=== PATIENT | male | born 1990 | race Caucasian/White ===

== ENCOUNTER 2019-06-12 22:47 | Emergency (ER) | payer MEDICARE, MEDICAID ==
--- NOTE | 2019-06-12 23:15 | EDM.PDOC ---
ED HPI GENERAL MEDICAL PROBLEM - General Chief Complaint: General Stated Complaint: facial bleeding Time Seen by Provider: 06/12/19 23:00 Source of Information: Reports: Patient, Family History Limitations: Reports: No Limitations - History of Present Illness INITIAL COMMENTS - FREE TEXT/NARRATIVE: he is seen in the emergency department for evaluation of bleeding from his nose. He was in the shower tonight and noted bleeding from the edge of his nose on the left side. The bleeding is not coming from inside the nose. Apparently was bleeding for over or an hour at home, so he came to the emergency department. It has however stopped bleeding. He denies any injury that he is aware of. No history of bleeding problems. - Related Data Allergies Allergy/AdvReac Type Severity Reaction Status Date / Time No Known Allergies Allergy Verified 06/12/19 22:49 Home Meds: Home Meds Benzoyl Peroxide [Panoxyl] 1 applic TP BEDTIME 06/12/19 [History] Cholecalciferol (Vitamin D3) [Vitamin D3] 2,000 unit PO DAILY 06/12/19 [History] Clindamycin Phos/Benzoyl Perox [Clindamycin-Benzoyl Perox 1-5%] 1 applic TP BID 06/12/19 [History] Clotrimazole [Clotrimazole 1%] 1 applic TP BID 06/12/19 [History] Sulfamethoxazole/Trimethoprim [Septra DS] 1 tab PO BID 06/12/19 [History] Tazarotene [Tazorac] 1 applic TP BEDTIME 06/12/19 [History] amLODIPine Besylate [Amlodipine Besylate] 1 tab PO DAILY 06/12/19 [History] lamoTRIgine 1 tab PO BID 06/12/19 [History] ED ROS GENERAL - Review of Systems Review Of Systems: See Below Constitutional: Reports: No Symptoms HEENT: Reports: Other (Bleeding from face) Respiratory: Reports: No Symptoms Cardiovascular: Reports: No Symptoms Endocrine: Reports: No Symptoms GI/Abdominal: Reports: No Symptoms : Reports: No Symptoms Musculoskeletal: Reports: No Symptoms Skin: Reports: No Symptoms Neurological: Reports: No Symptoms Psychiatric: Reports: No Symptoms Hematologic/Lymphatic: Reports: No Symptoms Immunologic: Reports: No Symptoms ED EXAM, GENERAL - Physical Exam Exam: See Below Exam Limited By: No Limitations General Appearance: Alert, WD/WN, No Apparent Distress Nose: Other (there is a /2 cm very superficial laceration on the left side of the nose superiorly. Palpation of the area in movement of the lacerated area did not cause the bleeding to restart. The nose is otherwise unremarkable.) Course - Vital Signs Last Recorded V/S: Last Vital Signs Temp 37.3 C 06/12/19 22:59 Pulse 98 06/12/19 22:59 Resp 18 06/12/19 22:59 BP 150/75 H 06/12/19 22:59 Pulse Ox 98 06/12/19 22:59 Departure - Departure Time of Disposition: 23:15 Disposition: Home, Self-Care 01 Clinical Impression: Laceration of face - Discharge Information Referrals: Sofia Celestin PA-C [Primary Care Provider] - Forms: ED Department Discharge Care Plan Goals: keep a Band-Aid over the area to avoid picking at it. Apply pressure with a gauze or Kleenex if the bleeding restarts. Followup as needed. - Assessment/Plan Assessment:: laceration face Plan: Keep a Band-Aid over the area to avoid picking at it. Apply pressure with a gauze or Kleenex if the bleeding restarts. Followup as needed.
== END 2019-06-12 23:20 | disposition home or self-care (01) ==
LOC: LL.ED 22:47
DX: S01.21XA Laceration without foreign body of nose, initial encounter (principal); X58.XXXA Exposure to other specified factors, initial encounter
CPT/HCPCS: 99282

== ENCOUNTER 2020-08-20 15:13 | Emergency (ER) | payer MEDICARE, MEDICAID ==
[2020-08-20] MEDS ORDERED: Pantoprazole 40 MG Vial IVPUSH ONE (15:34)
[2020-08-20] MEDS ORDERED: Famotidine 20 MG/2 ML SDV IVPUSH ONE (15:34)
[2020-08-20] MEDS ORDERED: Lactated Ringers 1,000 ML IV ONE (15:34)
--- NOTE | 2020-08-20 15:34 | EDM.PDOC ---
ED HPI GENERAL MEDICAL PROBLEM - General Chief Complaint: Genitourinary Problem Stated Complaint: Flank Pain Time Seen by Provider: 08/20/20 15:25 Source of Information: Reports: Patient, Old Records ([facility] chart/EMR), Other ([facility] EMR) History Limitations: Reports: Altered Mental Status - History of Present Illness INITIAL COMMENTS - FREE TEXT/NARRATIVE: The patient was brought to the emergency room via private automobile by his caregiver, Juli, for evaluation of nonspecific right CVA tenderness, which apparently started sometime yesterday evening. He did have problems sleeping during the night secondary to this discomfort with progressive symptoms today with no known previous fever. He was initially evaluated by Yaneli Nieves PA-C at the [facility] in [place], who did send the patient to emergency room for further evaluation. The patient is a somewhat poor historian secondary to his baseline stable by history mental deficits. Patient did receive Zofran by his regular provider for some nonspecific nausea and one episode of emesis in the clinic as above with no other treatment to this point, blood work, etc. He denies any gross hematuria or other UTI symptoms, however we could not determine whether he had colic or not. No recent history of abdominal pain, heartburn, nausea, diarrhea, melena, gross hematochezia, or any food intolerance, including fatty foods, etc. with normal bowel movement earlier today. The patient denies any chest pain/pressure, heart flutter, dizziness, orthostasis, orthopnea, diaphoresis, paresthesias, recent decreased exercise tolerance, or any other anginal-type symptoms, although some possible right pleuritic type symptoms based on difficult history. The patient also denies any recent fever, cough, wheezing, dyspnea, etc.. No known exposure to infection with patient already receiving his influenza booster. The patient did initially have problems while lying down with possible increase symptoms with oral intake but no anorexia, etc.? He is unable to relate his discomfort. Onset: Unknown/Unsure Onset Date: 08/19/20 Duration: Constant, Getting Worse Location: Reports: Chest, Abdomen (Right CVA). Denies: Radiates to Quality: Reports: Sharp Severity: Moderate Improves with: Reports: Rest Worsens with: Reports: Breathing, Movement Context: Reports: Other (As above). Denies: Sick Contact, Trauma Associated Symptoms: Reports: Chest Pain, Nausea/Vomiting (As above). Denies: Confusion, Cough, Diaphoresis, Fever/Chills Treatments STUDENT ASSISTANCE COUNSELOR: Reports: Other Medication(s) (As above) Right Back Pain Score (Numeric/FACES): 6 - Related Data Allergies Allergy/AdvReac Type Severity Reaction Status Date / Time No Known Allergies Allergy Verified 08/20/20 16:19 Home Meds: Home Meds Benzoyl Peroxide [Panoxyl] 1 applic TP BEDTIME 06/12/19 [History] Cholecalciferol (Vitamin D3) [Vitamin D3] 2,000 unit PO DAILY 06/12/19 [History] Clindamycin Phos/Benzoyl Perox [Clindamycin-Benzoyl Perox 1-5%] 1 applic TP BID 06/12/19 [History] amLODIPine Besylate [Amlodipine Besylate] 1 tab PO DAILY 06/12/19 [History] lamoTRIgine 0.5 tab PO BID 06/12/19 [History] Amoxicillin/Potassium Clav [Augmentin 875-125 Tablet] 1 each PO BIDMEALS #20 tablet 08/20/20 [Rx] Dextromethorphan/guaiFENesin [Mucinex DM ER 600-30 MG] 1 tab PO BID #20 tab.er 08/20/20 [Rx] Past Medical History Cardiovascular History: Reports: Arrhythmia, Hypertension, Other (See Below) Other Cardiovascular History: Myocardial fatty infiltration and nodularity by echocardiogram. PACs, PVCs, couplets, and sinus tachycardia. Genitourinary History: Reports: Other (See Below) Other Genitourinary History: Bilateral renal angiomyolipomas. Musculoskeletal History: Reports: Fracture, Other (See Below) Other Musculoskeletal History: Right fourth metatarsal fracture. Pes planus. Leg length discrepancy. Congenital vertical talus foot deformity. 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 Endocrine/Metabolic History: Reports: Other (See Below) Other Endocrine/Metabolic History: Hypophosphatemia. 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 Skin tags. - Past Imaging History Past Imaging History: Reports: Cardiac Echo (Last echocardiogram on 04/16/2020 with ejection fraction of 70% with previous studies on 02/27/2019, 12/06/2016, and 07/08/2011.), CAT Scan (CT of the abdomen and pelvis on 02/25/2010.), Holter Monitor (01/16/2019.), MRI (MRI of the heart on 03/06/2019 and 11/28/2016. MRI of the brain on 02/27/2019, 11/28/2016, and 07/13/2011. MRI of the abdomen and pelvis on 02/27/2019, 11/28/2016, 10/07/2014, 05/07/2013, and 06/29/2011.) Social & Family History - Tobacco Use Tobacco Use Status *Q: Never Tobacco User Tobacco Use Within Last Twelve Months: No Used Tobacco, but Quit: No Smoking Cessation Information Provided To Patient: No Second Hand Smoke Exposure: No Second Hand Smoke Education Provided: No - Living Situation & Occupation Living situation: Reports: Other (With roommate at [facility] facility) Occupation: Employed (By [employer]) ED ROS GENERAL - Review of Systems Review Of Systems: Comprehensive ROS is negative, except as noted in HPI. ED EXAM, RENAL/ - Physical Exam Exam: See Below Exam Limited By: No Limitations General Appearance: Alert, WD/WN, No Apparent Distress Eye Exam: Bilateral Eye: EOMI, Normal Inspection (No nystagmus), PERRL Ears: Normal External Exam, Normal Canal, Hearing Grossly Normal, Normal TMs Nose: Normal Mucosa, No Blood, Other (Typical facial angiofibromas extending to the facial region) Throat/Mouth: Normal Inspection, Normal Lips, Normal Teeth, Normal Gums, Normal Oropharynx, Normal Voice, No Airway Compromise. No: Dysphagia, Inflammation, Perioral Cyanosis Head: Atraumatic, Normocephalic, Other (Facial angiofibromas as above). No: Facial Swelling, Facial Tenderness, Sinus Tenderness Neck: Normal Inspection, Supple, Non-Tender, Full Range of Motion. No: Lymphadenopathy (L), Lymphadenopathy (R), Thyromegaly Respiratory/Chest: Normal Breath Sounds, No Accessory Muscle Use, Chest Non- Tender, Decreased Breath Sounds (Right base), Rales (Mild bilateral basilar). No: Rhonchi, Wheezing, Pleural Rub, Retractions Cardiovascular: Normal Peripheral Pulses, No Edema, No Gallop, No JVD, No Murmur, No Rub, Tachycardia (Secondary to fever. Regular rhythm). No: Gallop/S3, Gallop/S4, Friction Rub GI/Abdominal: Normal Bowel Sounds, Soft, Non-Tender, No Organomegaly, No Distention, No Abnormal Bruit, No Mass. No: Guarding (Male) Exam: Deferred Rectal (Males) Exam: Deferred Back Exam: Normal Inspection, Full Range of Motion. No: CVA Tenderness (L), CVA Tenderness (R), Muscle Spasm Extremities: Normal Inspection, Normal Range of Motion, Non-Tender, No Pedal Edema, Normal Capillary Refill. No: Jeanette's Sign Neurological: Normal Gait, Other (Stable mental developmental delay secondary to his tuberous sclerosis) Skin Exam: Other (As above with additional multiple skin tags). No: Diaphoretic, Wound/Incision Lymphatic: No Adenopathy Course - Vital Signs Last Recorded V/S: Last Vital Signs Temp 37.4 C 08/20/20 15:15 Pulse 117 H 08/20/20 15:15 Resp 16 08/20/20 15:15 BP 154/77 H 08/20/20 15:15 Pulse Ox 97 08/20/20 15:15 Vital Signs - 24 hr 08/20/20 15:15 Temperature [ 37.4 C Temporal] Pulse, 117 H Peripheral [ Pulse Oximetry] Respiratory 16 Rate Blood Pressure 154/77 H [Right Upper Arm] O2 Sat by Pulse 97 Oximetry - Orders/Labs/Meds Orders: Active Orders 24 hr Category Date Time Status Abdomen Pelvis wo Cont [CT] Stat Exams 08/20/20 15:36 Taken Chest 2V [CR] Urgent Exams 08/20/20 16:35 Taken CORONAVIRUS COVID-19 GONSALO [MOLEC] Stat Lab 08/20/20 17:15 Received CULTURE BLOOD [BC] Stat Lab 08/20/20 15:45 Received CULTURE BLOOD [BC] Stat Lab 08/20/20 15:55 Received CULTURE STREP A CONFIRMATION [RM] Stat Lab 08/20/20 17:15 Results CULTURE URINE [RM] Stat Lab 08/20/20 16:03 Received STREP SCRN A RAPID W CULT CONF [RM] Stat Lab 08/20/20 17:15 Results Blood Culture x2 Reflex Set [OM.PC] Urgent Oth 08/20/20 15:34 Ordered Isolation [COMM] Routine Oth 08/20/20 17:03 Active Obtain Past Medical Record [OM.PC] Urgent Oth 08/20/20 15:34 Active Peripheral IV Insertion Adult [OM.PC] Stat Oth 08/20/20 15:34 Ordered Resuscitation Status Stat Resus Stat 08/20/20 15:34 Ordered Labs: Laboratory Tests 08/20/20 08/20/20 08/20/20 Range/Units 15:45 15:45 15:45 WBC 12.7 H (4.0-10.2) K/uL RBC 4.67 (4.33-5.41) M/uL Hgb 14.9 (13.1-16.8) g/dL Hct 43.9 (39.0-49.0) % MCV 94.0 (84.0-98.0) fL MCH 31.9 (28.2-33.3) pg MCHC 33.9 (31.7-36.0) g/dL RDW 11.9 (11.2-14.1) % Plt Count 305 (150-350) K/uL Neut % (Auto) 86.9 H (45.0-80.0) % Lymph % (Auto) 5.5 L (10.0-50.0) % [place] % (Auto) 7.4 (2.0-14.0) % Eos % (Auto) 0.1 (0.0-5.0) % Baso % (Auto) 0.1 (0.0-2.0) % Neut # (Auto) 11.05 H (1.40-7.00) K/uL Lymph # (Auto) 0.70 (0.50-3.50) K/uL [place] # (Auto) 0.94 (0.00-1.00) K/uL Eos # (Auto) 0.01 (0.00-0.50) K/uL Baso # (Auto) 0.01 (0.00-0.20) K/uL PT 11.0 (9.5-12.0) SEC INR 1.1 APTT 28.3 (24.5-32.8) SEC Sodium (136-145) mmol/L Potassium (3.5-5.1) mmol/L Chloride (98-107) mmol/L Carbon Dioxide (21.0-32.0) mmol/L BUN (7-18) mg/dL Creatinine (0.51-1.17) mg/dL Est Cr Clr Drug Dosing Estimated GFR (MDRD) mL/min Glucose (74-106) mg/dL Lactic Acid (0.4-2.0) mmol/L Uric Acid (2.6-7.2) mg/dL Calcium (8.5-10.1) mg/dL Magnesium (1.8-2.4) mg/dL Total Bilirubin (0.2-1.0) mg/dL AST (15-37) U/L ALT (12-78) U/L Alkaline Phosphatase (46-116) IU/L Total Protein (6.4-8.2) g/dL Albumin (3.4-5.0) g/dL Amylase 57 (25-115) U/L Lipase (73-393) U/L Specimen Type Urine Color Urine Appearance Urine pH (5.0-9.0) Ur Specific [place] (1.005-1.030) Urine Protein (NEGATIVE) mg/dL Urine Glucose (UA) (NEGATIVE) mg/dL Urine Ketones (NEGATIVE) mg/dL Urine Occult Blood (NEGATIVE) Urine Nitrite (NEGATIVE) Urine Bilirubin (NEGATIVE) Urine Urobilinogen (0.2-1.0) E.U./dL Ur Leukocyte Esterase (NEGATIVE) Urine RBC /HPF Urine WBC /HPF Urine Bacteria (NONE TO FEW) /HPF 08/20/20 08/20/20 08/20/20 Range/Units 15:45 15:45 16:03 WBC (4.0-10.2) K/uL RBC (4.33-5.41) M/uL Hgb (13.1-16.8) g/dL Hct (39.0-49.0) % MCV (84.0-98.0) fL MCH (28.2-33.3) pg MCHC (31.7-36.0) g/dL RDW (11.2-14.1) % Plt Count (150-350) K/uL Neut % (Auto) (45.0-80.0) % Lymph % (Auto) (10.0-50.0) % [place] % (Auto) (2.0-14.0) % Eos % (Auto) (0.0-5.0) % Baso % (Auto) (0.0-2.0) % Neut # (Auto) (1.40-7.00) K/uL Lymph # (Auto) (0.50-3.50) K/uL [place] # (Auto) (0.00-1.00) K/uL Eos # (Auto) (0.00-0.50) K/uL Baso # (Auto) (0.00-0.20) K/uL PT (9.5-12.0) SEC INR APTT (24.5-32.8) SEC Sodium 138 (136-145) mmol/L Potassium 3.7 (3.5-5.1) mmol/L Chloride 101 (98-107) mmol/L Carbon Dioxide 25.8 (21.0-32.0) mmol/L BUN 13 (7-18) mg/dL Creatinine 0.81 (0.51-1.17) mg/dL Est Cr Clr Drug Dosing TNP Estimated GFR (MDRD) > 60 mL/min Glucose 142 H (74-106) mg/dL Lactic Acid 1.2 (0.4-2.0) mmol/L Uric Acid 4.7 (2.6-7.2) mg/dL Calcium 9.1 (8.5-10.1) mg/dL Magnesium 1.5 L (1.8-2.4) mg/dL Total Bilirubin 0.5 (0.2-1.0) mg/dL AST 17 (15-37) U/L ALT 74 (12-78) U/L Alkaline Phosphatase 109 (46-116) IU/L Total Protein 8.3 H (6.4-8.2) g/dL Albumin 4.3 (3.4-5.0) g/dL Amylase (25-115) U/L Lipase 143 (73-393) U/L Specimen Type Urinvoid Urine Color Yellow Urine Appearance Clear Urine pH 6.5 (5.0-9.0) Ur Specific [place] 1.015 (1.005-1.030) Urine Protein Negative (NEGATIVE) mg/dL Urine Glucose (UA) Negative (NEGATIVE) mg/dL Urine Ketones Negative (NEGATIVE) mg/dL Urine Occult Blood Trace-intact H (NEGATIVE) Urine Nitrite Negative (NEGATIVE) Urine Bilirubin Negative (NEGATIVE) Urine Urobilinogen 0.2 (0.2-1.0) E.U./dL Ur Leukocyte Esterase Negative (NEGATIVE) Urine RBC 0-5 /HPF Urine WBC Not seen /HPF Urine Bacteria Not seen (NONE TO FEW) /HPF Meds: Medications Discontinued Medications Generic Name Dose Route Start Last Admin Trade Name Freq PRN Reason Stop Dose Admin Famotidine 40 mg 08/20/20 15:34 08/20/20 15:53 Pepcid IVPUSH 08/20/20 15:35 40 mg ONETIME ONE Administration Lactated Ringer's 1,000 mls @ 999 mls/hr 08/20/20 15:34 08/20/20 15:55 Ringers, Lactated IV 08/20/20 16:34 999 mls/hr .BOLUS ONE Administration Ceftriaxone Sodium 1 gm/ 100 mls @ 200 mls/hr 08/20/20 15:54 08/20/20 16:04 Sodium Chloride IV 08/20/20 16:23 200 mls/hr ONETIME ONE Administration Ketorolac Tromethamine 30 mg 08/20/20 16:35 08/20/20 18:14 Toradol IVPUSH 08/20/20 16:36 30 mg ONETIME ONE Administration Pantoprazole Sodium 40 mg 08/20/20 15:34 08/20/20 15:52 Protonix Iv IVPUSH 08/20/20 15:35 40 mg ONETIME ONE Administration Sodium Chloride 10 ml 08/20/20 15:34 08/20/20 18:14 Saline Flush FLUSH 10 ml ASDIRECTED PRN Administration Keep Vein Open - Radiology Interpretation Free Text/Narrative:: Chest x-ray, PA and lateral, shows evidence of moderate right lower lobe consolidation with probable pulmonary obstructive disease with mild prominence of the proximal aortic arch, however no cardiomegaly, CHF, pneumothorax, etc. CT of the abdomen and pelvis without contrast using urinary stone protocol was negative for hydronephrosis or urolithiasis however evidence of the right small renal nephrolithiasis without obstruction. An additional bilateral masses consistent with previously known angiomyolipomas were noted. Preliminary verbal report was not received from the radiology department at [facility] in [place] as previously requested. Departure - Departure Time of Disposition: 15:25 Disposition: Home, Self-Care 01 Condition: Good Clinical Impression: Pleurisy with effusion, Tuberous sclerosis, Angiomyolipoma of both kidneys, Facial angiofibroma, Elevated blood pressure reading, Hypomagnesemia Pneumonia Qualifiers: Pneumonia type: due to unspecified organism Laterality: right Lung location: lower lobe of lung Qualified Code(s): J18.9 - Pneumonia, unspecified organism Complex partial seizure disorder Qualifiers: Epilepsy type: partial symptomatic Intractability: not intractable Status epilepticus: without status epilepticus Qualified Code(s): G40.209 - Localization-related (focal) (partial) symptomatic epilepsy and epileptic syndro mes with complex partial seizures, not intractable, without status epilepticus Hypertension Qualifiers: Hypertension type: essential hypertension Qualified Code(s): I10 - Essential (primary) hypertension - Discharge Information *PRESCRIPTION DRUG MONITORING PROGRAM REVIEWED*: Not Applicable *COPY OF PRESCRIPTION DRUG MONITORING REPORT IN PATIENT AMELIA: Not Applicable Prescriptions: Amoxicillin/Potassium Clav [Augmentin 875-125 Tablet] 1 each PO BIDMEALS #20 tablet Dextromethorphan/guaiFENesin [Mucinex DM ER 600-30 MG] 1 tab PO BID #20 tab.er Instructions: Pleurisy, [id number], Community-Acquired Pneumonia, Adult, [id number] Referrals: Sofia Celestin PA-C [Primary Care Provider] - Forms: ED Department Discharge Additional Instructions: 1. Followup with your regular provider in 7-10 days as directed for reevaluation and recommended repeat chest x-ray, CBC, magnesium level, and comprehensive metabolic panel. Bring these discharge instructions with you to that visit. 2. Tylenol 650 mg by mouth every 4 hours and/or OTC ibuprofen 2-3 tabs by mouth every 6 hours with food as directed./needed. You may stagger these medications for 48-72 hours only, which essentially means that you are receiving a pain medication about every 2 hours. Next dose of ibuprofen in 6 hours as needed secondary to medications given in the emergency room. 3. Diarrhea precautions with your antibiotic as discussed 4. Maintain recommended quarantine until you have been notified of today's COVID-19 test results as discussed with return to previous social distancing, use of masks, etc., thereafter as per current recommended CDC guidelines 5. Immediately after this visit verify that your cellular telephone's voicemail has been activated and is empty. Also verify that your home telephone's answering machine is operating properly and has space to receive messages. Note that it is sometimes necessary for us to be able to contact you at a later date to discuss your medical care. 6. Please remember that we are ALWAYS here for you and want to answer any questions you may have. Feel free to call the hospital any time and we call you back OMARI. Sepsis Event Note (ED) - Evaluation Sepsis Screening Result: No Definite Risk - Focused Exam Vital Signs: Vital Signs Temp Pulse Resp BP Pulse Ox 08/20/20 15:15 37.4 C 117 H 16 154/77 H 97 - Problem List & Annotations (1) Pneumonia SNOMED Code(s): 153248381 Code(s): J18.9 - PNEUMONIA, UNSPECIFIED ORGANISM Status: Acute Priority: High Onset Date: 08/20/20 Annotation/Comment:: IV Rocephin given in the emergency room with initiation of Augmentin therapy tomorrow morning. COVID-19 rapid test screen has been collected with results still pending. Isolation, quarantine precautions, etc. were discussed. He apparently does not need a work excuse. Close follow-up by his regular provider as per discharge instructions. Note that the patient did have a negative COVID-19 screen about 3 weeks ago with influenza booster obtained on 07/30/2020 by their history. Qualifiers: Pneumonia type: due to unspecified organism Laterality: right Lung location: lower lobe of lung Qualified Code(s): J18.9 - Pneumonia, unspecified organism (2) Pleurisy with effusion SNOMED Code(s): 90883311 Code(s): J90 - PLEURAL EFFUSION, NOT ELSEWHERE CLASSIFIED Status: Acute Priority: High Onset Date: ~08/19/20 Annotation/Comment:: Patient apparently had closely rather than right-sided colic as initially suspected. IV Toradol given in the emergency room. Symptomatic relief as per discharge instructions. (3) Tuberous sclerosis SNOMED Code(s): 1578793 Code(s): Q85.1 - TUBEROUS SCLEROSIS Status: Chronic Priority: Medium Annotation/Comment:: Stable by history (4) Complex partial seizure disorder SNOMED Code(s): 749295577 Code(s): G40.209 - LOCAL-REL SYMPTC EPI W CMPLX PRT SEIZ,NOT NTRCT,W/O STAT EPI Status: Chronic Priority: Medium Annotation/Comment:: Stable by history Qualifiers: Epilepsy type: partial symptomatic Intractability: not intractable Status epilepticus: without status epilepticus Qualified Code(s): G40.209 - Localization-related (focal) (partial) symptomatic epilepsy and epileptic syndromes with complex partial seizures, not intractable, without status epilepticus (5) Angiomyolipoma of both kidneys SNOMED Code(s): 76627548674469446 Code(s): D17.71 - BENIGN LIPOMATOUS NEOPLASM OF KIDNEY Status: Chronic Priority: Medium Annotation/Comment:: Stable by history with normal renal function today. (6) Facial angiofibroma SNOMED Code(s): 943070932 Code(s): D23.30 - OTHER BENIGN NEOPLASM OF SKIN OF UNSPECIFIED PART OF FACE Status: Chronic Priority: Medium Annotation/Comment:: Stable by history (7) Hypertension SNOMED Code(s): 22426147 Code(s): I10 - ESSENTIAL (PRIMARY) HYPERTENSION Status: Acute Annotation/Comment:: Blood pressure is mildly elevated in the emergency room. Observe for now. Qualifiers: Hypertension type: essential hypertension Qualified Code(s): I10 - Essential (primary) hypertension (8) Hypomagnesemia SNOMED Code(s): 912204437 Code(s): E83.42 - HYPOMAGNESEMIA Status: Acute Priority: Medium Onset Date: 08/20/20 Annotation/Comment:: Observe for now. Close follow-up by his regular provider. Additional supplementation depending on his clinical course. - Problem List Review Problem List Initiated/Reviewed/Updated: Yes - My Orders Last 24 Hours: My Active Orders 08/20/20 15:34 Blood Culture x2 Reflex Set [OM.PC] Urgent Obtain Past Medical Record [OM.PC] Urgent Peripheral IV Insertion Adult [OM.PC] Stat Resuscitation Status Stat 08/20/20 15:36 Abdomen Pelvis wo Cont [CT] Stat 08/20/20 15:45 CULTURE BLOOD [BC] Stat 08/20/20 15:55 CULTURE BLOOD [BC] Stat 08/20/20 16:03 CULTURE URINE [RM] Stat 08/20/20 16:35 Chest 2V [CR] Urgent 08/20/20 17:03 Isolation [COMM] Routine 08/20/20 17:15 CORONAVIRUS COVID-19 GONSALO [MOLEC] Stat CULTURE STREP A CONFIRMATION [RM] Stat STREP SCRN A RAPID W CULT CONF [RM] Stat - Assessment/Plan Last 24 Hours: My Active Orders 08/20/20 15:34 Blood Culture x2 Reflex Set [OM.PC] Urgent Obtain Past Medical Record [OM.PC] Urgent Peripheral IV Insertion Adult [OM.PC] Stat Resuscitation Status Stat 08/20/20 15:36 Abdomen Pelvis wo Cont [CT] Stat 08/20/20 15:45 CULTURE BLOOD [BC] Stat 08/20/20 15:55 CULTURE BLOOD [BC] Stat 08/20/20 16:03 CULTURE URINE [RM] Stat 08/20/20 16:35 Chest 2V [CR] Urgent 08/20/20 17:03 Isolation [COMM] Routine 08/20/20 17:15 CORONAVIRUS COVID-19 GONSALO [MOLEC] Stat CULTURE STREP A CONFIRMATION [RM] Stat STREP SCRN A RAPID W CULT CONF [RM] Stat Assessment:: As above Plan: As above. Extensive precautions were given to the patient and his caregiver, who are in agreement with the treatment plan. See Patient Instructions for further treatment and plan. Note that Bailee as caregiver did take over for Juli prior to the patient leaving this facility.
[2020-08-20] MEDS ORDERED: cefTRIAXone 1 GM in Sodium Chloride 0.9% 100 ML IV ONE (15:54)
[2020-08-20] MEDS: Sodium Chloride 0.9% 10 ML Syringe FLUSH PRN ×2 (15:54→18:14)
[2020-08-20 16:21] LABS: PTT,PARTIAL THROMBOPLSTIN TIME 28.3 SEC (24.5-32.8)
[2020-08-20 16:35] LABS: CHLORIDE,CL 101 mmol/L (98-107); SODIUM,NA 138 mmol/L (136-145)
[2020-08-20] MEDS ORDERED: Ketorolac 30 MG/ML SDV IVPUSH ONE (16:35)
== END 2020-08-20 18:10 | disposition home or self-care (01) ==
LOC: LL.ED 15:13
DX: J18.9 Pneumonia, unspecified organism (principal); J90 Pleural effusion, not elsewhere classified; Q85.1 Tuberous sclerosis; D17.71 Benign lipomatous neoplasm of kidney; D36.7 Benign neoplasm of other specified sites; E83.42 Hypomagnesemia; G40.209 Localization-related (focal) (partial) symptomatic epilepsy and epileptic syndromes with complex partial seizures, not intractable, without status epilepticus; I10 Essential (primary) hypertension; Z79.899 Other long term (current) drug therapy; Z20.828 Contact with and (suspected) exposure to other viral communicable diseases
CPT/HCPCS: 36415; 71046; 74176; 80053; 81001; 82150; 83605; 83690; 83735; 84550; 85025; 85610; 85730; 87040; 87081; 87086; 87430; 87804; 96365; 96375; 99284; 99285-25; C9113; J0696; J1885; J3490; J7120; U0002